=== PATIENT | female | born 1965 | race Native Hawaiian/Other Pacific Islander ===

== ENCOUNTER 2021-08-12 13:32 | Outpatient (CLI) | payer BC | END 2021-08-12 21:42 | disposition home or self-care (01) | LOC: RAD 13:32 | PROVIDERS: ATTEND Internal Medicine Rheumatology | DX: M06.4 Inflammatory polyarthropathy (principal); M54.51 Vertebrogenic low back pain ==

== ENCOUNTER 2022-03-25 15:15 | Outpatient (CLI) | payer OTHER | END 2022-03-25 19:06 | disposition home or self-care (01) | LOC: CT 15:15 | PROVIDERS: ATTEND Physician Assistant Medical | DX: Z13.6 Encounter for screening for cardiovascular disorders (principal) ==